=== PATIENT | male | born 1995 | race African-American/Black ===

== ENCOUNTER 2022-04-25 03:44 | Emergency (ER) | payer OTHER ==
[~2022-04-25] VITALS: Ht 188 cm; Wt 87.0 kg
[2022-04-25 03:49] VITALS: BP 124/68
== END 2022-04-25 05:22 | disposition left against medical advice (07) ==
LOC: ER 03:44
DX: Z53.21 Procedure and treatment not carried out due to patient leaving prior to being seen by health care provider (principal)